=== PATIENT | female | born 1930 | race Caucasian/White ===

== ENCOUNTER → 2017-06-26 18:59 | Emergency (ER) | payer MEDICARE ==
[2017-06-26 19:24] VITALS: BP 116/46
--- NOTE | 2017-06-26 19:36 | UC ---
Respiratory Complaint HPI - HPI Summary HPI Summary: 4 days of progressive fatigue and SOB, Three times today her daughter said that while walking out to the kitchen the patient c/o SOB and needed to lay back down - History of Current Complaint Chief Complaint: UCRespiratory Stated Complaint: SHORTNESS OF BREATH Time Seen by Provider: 06/26/17 19:23 Hx Obtained From: Patient, Family/Twisthand ?: No Onset/Duration: Sudden Onset, Lasting Days - 4, Still Present Timing: Constant Severity Initially: Moderate Severity Currently: Moderate Aggravating Factors: Exertion Alleviating Factors: Nothing Associated Signs And Symptoms: Positive: Negative - Allergies/Home Medications Allergies/Adverse Reactions: Allergies Allergy/AdvReac Type Severity Reaction Status Date / Time Amoxicillin Allergy Severe Rash Verified 06/26/17 19:17 Metronidazole Allergy Severe Diarrhea Verified 06/26/17 19:17 Sulfamethoxazole Allergy Severe Rash Verified 06/26/17 19:17 w/Trimethoprim [From Bactrim] Diclofenac Allergy Unknown Verified 06/26/17 19:17 Reaction Details Home Medications: Home Medications Benazepril HCl [Lotensin] 10 mg DAILY 06/26/17 [History Confirmed 06/26/17] Conjugated Estrogens VAG CM* [Premarin VAG CREAM*] 1 applic WEEKLY 06/26/17 [ History Confirmed 06/26/17] Doxepin (NF) [Silenor (NF)] 10 mg BEDTIME 06/26/17 [History Confirmed 06/26/17] Levothyroxine TAB* [Synthroid 75 MCG TAB*] 75 mcg DAILY 06/26/17 [History Confirmed 06/26/17] Propranolol HCl [Propranolol HCl ER] 80 mg PO DAILY 06/26/17 [History Confirmed 06/26/17] Venlafaxine EXT RELEASE CAP* [Effexor Xr CAP*] 37.5 mg PO DAILY 06/26/17 [ History Confirmed 06/26/17] PMH/Surg Hx/FS Hx/Imm Hx Endocrine History: Hypothyroidism, Dyslipidemia Cardiovascular History: Cardiac Disease Psychological History: Anxiety - Surgical History Surgical History: Yes Surgery Procedure, Year, and Place: Hysterectomy - Family History Known Family History: Positive: None - Social History Occupation: Retired Lives: With Family Alcohol Use: None Substance Use Type: None Smoking Status (MU): Current Every Day Smoker Type: Cigarettes Amount Used/How Often: 1/2 PPD Have You Smoked in the Last Year: Yes Cessation Counseling: Patient Advised to Stop - Immunization History Most Recent Influenza Vaccination: 05/20/17 Most Recent Pneumonia Vaccination: 05/20/17 Review of Systems Constitutional: Negative Skin: Negative Eyes: Negative ENT: Negative Respiratory: Shortness Of Breath Cardiovascular: Negative Gastrointestinal: Negative Genitourinary: Negative Motor: Negative Neurovascular: Negative Musculoskeletal: Negative Neurological: Negative Psychological: Negative Is Patient Immunocompromised?: No All Other Systems Reviewed And Are Negative: Yes Physical Exam Triage Information Reviewed: Yes Appearance: Well-Nourished, Ill-Appearing - mild, Pain Distress - mild Vital Signs: Initial Vital Signs Temp 97.4 F 06/26/17 19:17 Pulse 64 06/26/17 19:17 Resp 26 06/26/17 19:17 BP 116/46 06/26/17 19:17 Pulse Ox 96 06/26/17 19:17 Vital Signs Reviewed: Yes Eye Exam: Normal Eyes: Positive: Conjunctiva Clear ENT Exam: Normal ENT: Positive: Normal ENT inspection, Hearing grossly normal. Negative: Nasal congestion, Nasal drainage, Trismus, Muffled voice, Hoarse voice, Dental tenderness Dental Exam: Normal Neck exam: Normal Neck: Positive: Supple, Nontender Respiratory Exam: Normal Respiratory: Positive: Chest non-tender, Lungs clear, Normal breath sounds, No respiratory distress, No accessory muscle use Cardiovascular Exam: Normal Cardiovascular: Positive: RRR, No Murmur, Pulses Normal, Brisk Capillary Refill Musculoskeletal Exam: Normal Musculoskeletal: Positive: Strength Intact, ROM Intact, No Edema Neurological Exam: Normal Neurological: Positive: Alert, Muscle Tone Normal Psychological Exam: Normal Skin Exam: Normal UC Diagnostic Evaluation - Laboratory O2 Sat by Pulse Oximetry: 96 - EKG Cardiac Rate: Bradycardia Cardiac Rhythm: Sinus: Normal - arrythmia Ectopy: None Respiratory Course/Dx - Course Course Of Treatment: to [facility] for higher level of care-- - Differential Dx/Diagnosis Provider Diagnoses: Dyspnea - Physician Notification/Consults Discussed Patient Care With: Pepe Roldan Time Discussed With Above Provider: 19:58 Instructed by Provider To: Transfer Discharge - Discharge Plan Condition: Fair Disposition: OTHER Discharge Disposition Comment: to [facility] by Private Car Patient Education Materials: Dyspnea (ED) Referrals: Lacey Arnold PA [Physician [employer]] - Additional Instructions: To hospital for further medical care tonight
== END ==
LOC: UCCORT 18:59
DX: R06.00 Dyspnea, unspecified (principal); F17.210 Nicotine dependence, cigarettes, uncomplicated
CPT/HCPCS: 93005; 99202; G0463